=== PATIENT | male | born 1955 | race Caucasian/White ===

== ENCOUNTER → 2016-11-12 | Outpatient (CLI) | payer MEDICARE, MEDICAID ==
[2016-11-12 19:36] VITALS: BP 189/94
== END ==
LOC: MHUC 17:11
PROVIDERS: ATTEND Physician Assistant
DX: S01.81XA Laceration without foreign body of other part of head, initial encounter (principal); W01.0XXA Fall on same level from slipping, tripping and stumbling without subsequent striking against object, initial encounter
CPT/HCPCS: 12011; 99213